=== PATIENT | female | born 1970 | race Hispanic/Latino ===

== ENCOUNTER 2017-08-04 19:06 | Observation (INO) | payer OTHER ==
[~2017-08-04] VITALS: Ht 157.5 cm; Wt 67.2 kg
[2017-08-04] MEDS ORDERED: METRONIDAZOL500 MG PO (19:19)
[2017-08-04] MEDS ORDERED: AMOXICILLIN500 M2 PO (19:20)
--- NOTE | 2017-08-04 19:45 | NUR ---
PT AMBULATORY TO ROOM....CRUMPED OVER. ABD TENDER IN EPIGASTRIC AREA WELL RLQ. PT TO BR TO VOID. LABS/URINE AND INT OBTAINED.
[2017-08-04 20:11] LABS: HEMATOCRIT 35.5 % (37.0-47.0); HEMOGLOBIN 11.6 g/dl (12.0-16.0); IMMATURE GRANULOCYTES 0.3 % (0.0-1.0); MEAN CELL VOLUME 89.2 fL CALC (80.0-100.0); MEAN CORPUSCULAR HGB 29.1 pG CALC (26.0-32.0); MEAN CORPUSCULAR HGB CONC 32.7 g/L CALC (32.0-36.0); NEUT# 7.94 thou/uL (2.00-7.15); RED BLOOD COUNT 3.98 mill/uL (4.20-5.60); RED CELL DISTRI WIDTH 12.8 % (11.5-15.5)
[2017-08-04 20:11] LABS: URINE BILIRUBIN - DIPSTICK NEGATIVE (NEGATIVE); URINE BLOOD DIPSTICK SMALL (NEGATIVE); URINE CLARITY CLEAR; URINE COLOR YELLOW; URINE GLUCOSE - DIPSTICK NEGATIVE (NEGATIVE); URINE KETONE NEGATIVE (NEGATIVE); URINE LEUK ESTERASE NEGATIVE (NEGATIVE); URINE NITRITE - DIPSTICK NEGATIVE (Negative); URINE PH 8.5 (4.5-8.0); URINE PROTEIN - DIPSTICK TRACE mg/dL (NEG-TRACE); URINE SPECIFIC GRAVITY 1.015; URINE UROBILINOGEN - DIPSTICK 0.2 E.U./dL (0.2)
[2017-08-04 20:28] LABS: URINE SQUAMOUS EPITHELIAL CELL MODERATE EPI/hpf (0-FEW); URINE WBC 0-2 WBC/hpf (0-5)
[2017-08-04 20:28] LABS: ALBUMIN 4.5 g/dL (3.2-5.0); ALKALINE PHOSPHATASE 75 u/l (38-126); AMYLASE 77 u/l (30-110); ANION GAP 20 (6-22 (CALC)); BILIRUBIN, TOTAL 0.8 mg/dL (0.0-1.4); BUN 6 mg/dL (7-17); BUN/CREATININE RATIO 10 (12-20 (CALC)); CALCIUM 9.8 mg/dL (8.4-10.2); CARBON DIOXIDE 23 mmol/l (22-30); CHLORIDE 101 mmol/l (95-108); CREATININE 0.6 mg/dL (0.5-1.0); GFR > 60 ML/MIN (>=60 (CALC)); GFR FOR AFR.AMER. > 60 ML/MIN (>=60 (CALC)); GLUCOSE 130 mg/dL (65-105); LIPASE 75 u/l (23-300); POTASSIUM 3.9 mmol/l (3.5-5.1); SGOT/AST 36 u/l (14-36); SGPT/ALT 19 u/l (9-52); SODIUM 140 mmol/l (137-146); TOTAL PROTEIN 7.7 g/dL (6.3-8.2)
--- NOTE | 2017-08-04 21:02 | NUR ---
[facility] AT BEDSIDE FOR TRANSPORT TO [facility] FOR CAT SCAN.
--- NOTE | 2017-08-04 23:47 | NUR ---
PT RETURNED FROM [facility] WHERE SHE HAD TO GO FOR A CT OURS WAS DOWN. PT RETURNED VIA [facility]. A/O NAD. VSS. SURGEON HERE TO GREET PT. OR TEAM WAS CALLED IN WHILE PT WAS BEING TRANSPORTED BACK TO [facility].
[2017-08-05] VITALS (9 sets, daily range): BP systolic 90–113; BP diastolic 49–72
--- NOTE | 2017-08-05 00:30 | NUR ---
DR/NURSE ANESTH/OR NURSE TO BEDSIDE. PT AMBULATORY TO BR TO VOID. CLOTHES/CELL PHONE BAGGED AND LABELED. PT TO OR BY NURSE.
--- NOTE | 2017-08-05 02:40 | NUR ---
PATIENT ARRIVED FROM RECOVERY IN STABLE CONDITION VIA STRETCHER AND ACCOMPANIED BY OR NURSES. PATIENT SETT
--- NOTE | 2017-08-05 02:40 | NUR ---
PATIENT ARRIVED TO THE FLOOR IN STABLE CONDITION VIA STRETCHER AND ACCOMPANIED BY THE OR NURSES. PATIENT SETTLED TO BED. PATIENT ALERT AND ORIENTED. DENIES PAIN. ORIENT PATIENT TO ROOM CALL SYSTEM. BED IN LOW POSITION AND CALL LIGHT IN REACH.
--- NOTE | 2017-08-05 07:10 | NUR ---
RECEIVED BEDSIDE REPORT FROM EVA SCHWARTZ. RESTING IN SEMI FOWLERS WITH EYES CLOSED, AWAKESN EASILY. RESPS EVEN AND UNLABORED ON ROOM AIR. ABD SOFT, TENDER TO TOUCH, DERMABOND X 3 INTACT, NO DRAINAGE OR REDNESS NOTED. #20 LAC INFUSING WITHOUT DIFFICULTY, SITE APPEARS HEALTHY. SCD'S TO BILAT LOWER EXTREMITIES. ICE CHIPS OFFERED. DENIES PAIN OR DISCOMFORT. PLAN OF CARE DISCUSSED. SAFETY PRECAUTIONS REINFORCED. BED IN LOWEST POSITION WITH WHEELS LOCKED. IS AT BEDSIDE. CALL LIGHT WITHIN REACH. ENCOURAGED PT TO CALL FOR ANY NEEDS.
--- NOTE | 2017-08-05 09:48 | NUR ---
AMBULATING WITH A STEADY GAIT ACCOMPANIED BY . TOLERATING WELL.
--- NOTE | 2017-08-05 12:34 | NUR ---
RESTING IN HIGH FOWLERS EATING LUNCH. FAMILY AT BEDSIDE. RESPS EVEN AND UNLABORED ON ROOM AIR. #20 LAC INFUSING WITHOUT DIFFICULTY, SITE APPEARS HEALTHY. MEDICATED WITH TORADOL 15MG IVP FOR C/O 4/10 ABD PAIN. TOLERATING REGULAR DIET WITHOUT C/O NAUSEA. SCD'S TO BILAT LOWER EXTREMITIES. ENCOURAGED PT TO CALL FOR ANY NEEDS. CALL LIGHT WITHIN REACH.
--- NOTE | 2017-08-05 16:25 | NUR ---
RESTING IN SEMI FOWLERS WATCHING TV. RESPS EVEN AND UNLABORED ON ROOM AIR. #20 LAC INFUSING WITHOUT DIFFICULTY, SITE APPEARS HEALTHY. ABD SOFT, DERMABOND INTACT X3, BOWEL SOUNDS ACTIVE X4 QUADS. SCD'S TO BILAT LOWER EXTREMITIES. DENIES PAIN OR DISCOMFORT. CALL LIGHT WITHIN REACH. ENCOURAGED PT TO CALL FOR ANY NEEDS.
--- NOTE | 2017-08-05 16:45 | NUR ---
DR GUTIERREZ IN WITH PT, NEW ORDERS RECEIVED.
--- NOTE | 2017-08-05 18:50 | NUR ---
RECEIVED CHANGE OF SHIFT REPORT FROM LANA RIVAS. PATIENT SITTING UP IN BED AWAKE, ALERT AND ORIENTED. DENIES PAIN AT THIS TIME. NO APPARENT ACUTE DISTRESS NOTED. WILL CONTINUE TO MONITOR.
[2017-08-06 00:03] VITALS: BP 131/82
--- NOTE | 2017-08-06 00:53 | NUR ---
PATIENT RESTING IN BED AT THIS TIME C/I POST-OP PAIN. PATIENT MEDICATED WITH ZOFRAN 4MG IVP FOR NAUSEA AND DILAUDID 1MF IVP FOR PAIN. CALL LIGHT IN REACH. WILL CONT TO MONITOR.
[2017-08-06 04:00] VITALS: BP 109/64
[2017-08-06 07:55] VITALS: BP 115/68
--- NOTE | 2017-08-06 08:00 | NUR ---
REPORT RECEIVED FROM NIGHT NURSE. PT.HAS BEEN WEARING SCD'S, BUT IS NOW DISCONNECTED FROM THEM SO SHE CAN AMBULATE AROUND ROOM. PT.V/S ASSESSED. TEMP.98.7, PT.LEFT UPRIGHT IN BED STARTING TO EAT BREAKFAST. CALL LIGHT AT SIDE AND INSTRUCTED TO CALL IF ANY NEEDS ARISE. SHE DENIES ANY AT THIS TIME. WILL FOLLOW-UP WITH FULL ASSESSMENT AND AM MEDICATIONS ORDERED
--- NOTE | 2017-08-06 09:15 | NUR ---
PT.MEDICATED ORDERS PROVIDE. PT.UPRIGHT IN BED W/TV ON. CALL LIGHT AT SIDE, DENIES ANY OTHER NEEDS AT THIS TIME.
--- NOTE | 2017-08-06 12:19 | NUR ---
PT.MEDICATED FOR PAIN 03/22. ANTIBIOTIC THERAPY IS BEING ADMINISTERED AT THIS TIME. PT.DENIES ANY OTHER NEEDS AT THIS TIME. WILL F/UP FOR PAIN EVALUATION AND COMPLETION OF ANTIBIOTIC THERAPY.
--- NOTE | 2017-08-06 14:34 | NUR ---
PT.IV REMOVED INTACT, SITE APPEARS HEALTHY, PT.DISCHARGE INSTRUCTIONS REVIEWED WITH PT. SHE IS DRESSED AND AWAITING HER SISTER TO COME PICK HER UP. PT.IS IN GOOD CONDITION
--- NOTE | 2017-08-06 15:05 | NUR ---
PT.DISHCARGED OFF THE FLOOR VIA WC IN GOOD CONDITION ACCOMPANIED BY SISTER AND ANABELA, MUSTAPHA
== END 2017-08-06 15:15 | disposition home or self-care (01) | DRG 343 ==
LOC: ED 19:06 → ED-I 22:50 → ED 08-05 00:33 → MS2 08-05 00:34 → ED-I 08-05 00:34 → ED 08-05 00:34 → MS2 08-05 02:12
PROVIDERS: Emergency Medicine; ADMIT Surgery; ATTEND Surgery
PROC: 0DTJ4ZZ Resection of Appendix, Percutaneous Endoscopic Approach (ICD-10-PCS; principal; 2017-08-05)
DX: K35.80 Unspecified acute appendicitis (principal)
CPT/HCPCS: J1650; J2710; S0164

== ENCOUNTER 2018-12-17 18:17 | Emergency (ER) | payer OTHER ==
[~2018-12-17] VITALS: Ht 157.5 cm; Wt 64.0 kg
[~2018-12-17 18:17] MED LIST: AMOXICILLIN500 M2 PO; METRONIDAZOL500 MG PO
[2018-12-17 19:44] LABS: IMMATURE GRANULOCYTES 0.3 % (0.0-5.0); MEAN CELL VOLUME 90.4 fL CALC (80.0-100.0); MEAN CORPUSCULAR HGB 30.6 pG CALC (26.0-32.0); MEAN CORPUSCULAR HGB CONC 33.8 g/L CALC (32.0-36.0); NEUT# 5.63 thou/uL (2.00-7.15); RED CELL DISTRI WIDTH 12.4 % (11.5-15.5)
[2018-12-17 19:45] LABS: URINE BILIRUBIN - DIPSTICK NEGATIVE (NEGATIVE); URINE BLOOD DIPSTICK TRACE-INTACT (NEGATIVE); URINE COLOR YELLOW; URINE GLUCOSE - DIPSTICK NEGATIVE (NEGATIVE); URINE KETONE NEGATIVE (NEGATIVE); URINE LEUK ESTERASE NEGATIVE (NEGATIVE); URINE NITRITE - DIPSTICK NEGATIVE (Negative); URINE PROTEIN - DIPSTICK NEGATIVE (NEG-TRACE); URINE SPECIFIC GRAVITY <=1.005; URINE UROBILINOGEN - DIPSTICK 0.2 E.U./dL (0.2)
[2018-12-17 19:48] LABS: HEMATOCRIT 45.2 % (37.0-47.0); HEMOGLOBIN 15.3 g/dl (12.0-16.0)
[2018-12-17 19:53] LABS: ALBUMIN 5.1 g/dL (3.2-5.0); ALKALINE PHOSPHATASE 80 u/l (38-126); AMYLASE 64 u/l (30-110); ANION GAP 14 (6-22 (CALC)); BILIRUBIN, TOTAL 0.6 mg/dL (0.0-1.4); BUN 8 mg/dL (7-17); BUN/CREATININE RATIO 14 (12-20 (CALC)); CHLORIDE 98 mmol/l (95-108); CREATININE 0.6 mg/dL (0.5-1.0); GFR > 60 ML/MIN (>=60 (CALC)); GFR FOR AFR.AMER. > 60 ML/MIN (>=60 (CALC)); LIPASE 212 u/l (23-300); POTASSIUM 3.8 mmol/l (3.5-5.1); SGOT/AST 40 u/l (14-36); SODIUM 140 mmol/l (137-146); TOTAL PROTEIN 8.1 g/dL (6.3-8.2)
[2018-12-17 19:54] LABS: CARBON DIOXIDE 32 mmol/l (22-30)
[2018-12-17 22:34] LABS: HEMATOCRIT 45.9 % (37.0-47.0); HEMOGLOBIN 14.6 g/dl (12.0-16.0); IMMATURE GRANULOCYTES 0.5 % (0.0-5.0); MEAN CELL VOLUME 95.6 fL CALC (80.0-100.0); MEAN CORPUSCULAR HGB 30.4 pG CALC (26.0-32.0); MEAN CORPUSCULAR HGB CONC 31.8 g/L CALC (32.0-36.0); NEUT# 6.42 thou/uL (2.00-7.15); RED BLOOD COUNT 4.8 mill/uL (4.20-5.60); RED CELL DISTRI WIDTH 12.5 % (11.5-15.5)
[2018-12-17 22:39] LABS: ALBUMIN 4.3 g/dL (3.2-5.0); ALKALINE PHOSPHATASE 66 u/l (38-126); AMYLASE 54 u/l (30-110); ANION GAP 14 (6-22 (CALC)); BILIRUBIN, TOTAL 0.6 mg/dL (0.0-1.4); BUN 6 mg/dL (7-17); BUN/CREATININE RATIO 12 (12-20 (CALC)); CARBON DIOXIDE 28 mmol/l (22-30); CHLORIDE 101 mmol/l (95-108); CREATININE 0.5 mg/dL (0.5-1.0); GFR > 60 ML/MIN (>=60 (CALC)); GFR FOR AFR.AMER. > 60 ML/MIN (>=60 (CALC)); LIPASE 144 u/l (23-300); SGOT/AST 39 u/l (14-36); SODIUM 139 mmol/l (137-146); TOTAL PROTEIN 7.1 g/dL (6.3-8.2)
[2018-12-17] MEDS ORDERED: PROTONIX40 MG PO (22:50)
[2018-12-17 23:12] VITALS: BP 134/76
== END 2018-12-17 23:00 | disposition home or self-care (01) ==
LOC: ED 18:17
PROVIDERS: Emergency Medicine
DX: R10.13 Epigastric pain (principal); R14.0 Abdominal distension (gaseous)
CPT/HCPCS: Q9967; S0164

== ENCOUNTER 2019-10-25 | Emergency (ER) | payer MEDICAID ==
[~2019-10-25] MED LIST changes: +PROTONIX40 MG PO
[2019-10-25 10:17] LABS: HEMATOCRIT 41.1 % (37.0-47.0); HEMOGLOBIN 13.7 g/dl (12.0-16.0); IMMATURE GRANULOCYTES 0.5 % (0.0-5.0); MEAN CELL VOLUME 90.7 fL CALC (80.0-100.0); MEAN CORPUSCULAR HGB 30.2 pG CALC (26.0-32.0); MEAN CORPUSCULAR HGB CONC 33.3 g/L CALC (32.0-36.0); NEUT# 3.01 thou/uL (2.00-7.15); RED BLOOD COUNT 4.53 mill/uL (4.20-5.60); RED CELL DISTRI WIDTH 12.3 % (11.5-15.5)
[2019-10-25 10:40] LABS: ANION GAP 13 (6-22 (CALC)); BUN 11 mg/dL (7-17); BUN/CREATININE RATIO 21 (12-20 (CALC)); CARBON DIOXIDE 26 mmol/l (22-30); CHLORIDE 103 mmol/l (95-108); CREATININE 0.5 mg/dL (0.5-1.0); GFR > 60 ML/MIN (>=60 (CALC)); GFR FOR AFR.AMER. > 60 ML/MIN (>=60 (CALC)); POTASSIUM 4.2 mmol/l (3.5-5.1); SODIUM 138 mmol/l (137-146)
== END 2019-10-25 11:40 | disposition home or self-care (01) ==
PROVIDERS: Family Medicine
DX: S06.0X0A Concussion without loss of consciousness, initial encounter (principal); W22.8XXA Striking against or struck by other objects, initial encounter

== ENCOUNTER 2020-02-02 12:36 | Emergency (ER) | payer SELFPAY ==
[2020-02-02] MEDS ORDERED: CEPHALEXIN500 MG PO (13:20)
[2020-02-02 14:06] VITALS: BP 144/84
== END 2020-02-02 14:06 | disposition home or self-care (01) | DRG 607 ==
LOC: ED 12:36
DX: S90.561A Insect bite (nonvenomous), right ankle, initial encounter (principal); R21 Rash and other nonspecific skin eruption; W57.XXXA Bitten or stung by nonvenomous insect and other nonvenomous arthropods, initial encounter

== ENCOUNTER 2022-12-11 15:44 | Emergency (ER) | payer SELFPAY ==
[~2022-12-11] VITALS: Ht 157.5 cm; Wt 59.8 kg
[~2022-12-11 15:44] MED LIST changes: +CEPHALEXIN500 MG PO
[2022-12-11 16:31] VITALS: BP 167/84
[2022-12-11 16:45] VITALS: BP 133/72
[2022-12-11] MEDS ORDERED: KENALOG15 GM/TUBE EX (17:33)
[2022-12-11] MEDS ORDERED: PREDNISONE10 MG PO (17:33)
[2022-12-11 17:46] VITALS: BP 133/72
== END 2022-12-11 17:54 | disposition home or self-care (01) | DRG 607 ==
LOC: ED 15:44
DX: R21 Rash and other nonspecific skin eruption (principal)